=== PATIENT | male | born 1945 | race Caucasian/White ===

== ENCOUNTER 2023-12-05 10:14 | Emergency (ER) | payer MEDICAID ==
[~2023-12-05] VITALS: Ht 180.3 cm; Wt 75.3 kg
[2023-12-05] MEDS ORDERED: IBUP-1957 PO (10:54)
[2023-12-05 11:32] VITALS: BP 120/71; TEMP 98.2; O2SAT 97
== END 2023-12-05 11:32 | disposition home or self-care (01) ==
LOC: ER 10:17
DX: S83.282A Other tear of lateral meniscus, current injury, left knee, initial encounter (principal); I10 Essential (primary) hypertension; X58.XXXA Exposure to other specified factors, initial encounter; Y93.89 Activity, other specified; Y92.89 Other specified places as the place of occurrence of the external cause; Y99.8 Other external cause status
CPT/HCPCS: 73564-TC